=== PATIENT | male | born 1970 | race Caucasian/White ===

== ENCOUNTER → 2018-06-28 | Outpatient (CLI) | payer BC ==
--- NOTE | 2018-06-28 14:44 | XR ---
EXAMINATION TYPE: XR foot complete RT DATE OF EXAM: 06/28/2018 CLINICAL HISTORY: Right foot pain with bruising fourth and fifth toes after kicking injury TECHNIQUE: Frontal, lateral, and oblique images of the right foot are obtained. COMPARISON: None FINDINGS: There is no acute fracture/dislocation evident in the right foot. There is varus positioni ng distal fifth toe. Mild flexion in second through fifth toes is noted. There is small to moderate s ize inferior calcaneal spur. Mild diffuse subcutaneous edema is present. IMPRESSION: There is no acute fracture or dislocation in the right foot.
== END | disposition home or self-care (01) ==
LOC: RADXRMAIN 14:22
PROVIDERS: ATTEND Family Medicine
DX: M79.671 Pain in right foot (principal)

== ENCOUNTER → 2021-08-19 | Outpatient (CLI) | payer BC, OTHER ==
--- NOTE | 2021-08-19 19:47 | CT ---
EXAMINATION TYPE: CT abdomen pelvis w con DATE OF EXAM: 08/19/2021 COMPARISON: None HISTORY: Cutaneous abscess of abdominal wall. Hx prosate ca. CT DLP: 3054.10 mGycm Automated exposure control for dose reduction was used. TECHNIQUE: Helical acquisition of images from the lung bases through the pelvis have been completed. CONTRAST: Performed with Oral Contrast and with IV Contrast, patient injected with 100 mL of Isovue 300. FINDINGS: LUNG BASES: No significant abnormality is appreciated. AORTA: No significant abnormality is appreciated. LIVER/GB: The liver is enlarged and shows low-attenuation consistent with hepatic steatosis, gallblad justice unremarkable. PANCREAS: No significant abnormality is seen. SPLEEN: Subtle low dense focus is noted towards the diaphragm measuring 13 mm, is indeterminate. ADRENALS: Right adrenal gland shows an associated low dense focus measuring approximately 4.5 cm, pos sible adenoma KIDNEYS: No significant abnormality is seen. REPRODUCTIVE ORGANS: No significant abnormality is seen BOWEL: No significant abnormality is seen. No evident appendicitis. FREE AIR: No Free Air visible. ASCITES: None visible. PELVIC ADENOPATHY: None visualized. RETROPERITONEAL ADENOPATHY: No Retroperitoneal Adenopathy visible. URINARY BLADDER: No significant abnormality is seen. OSSEOUS STRUCTURES: Degenerative disc changes are present in the visualized spine, there is facet ar thropathy. IMPRESSION: HEPATIC STEATOSIS, HEPATOMEGALY. RIGHT ADRENAL MASS, MRI MAY BE OF BENEFIT.
== END | disposition home or self-care (01) ==
LOC: RADCTMAIN 15:28
PROVIDERS: ATTEND Family Medicine
DX: K76.0 Fatty (change of) liver, not elsewhere classified (principal); R16.0 Hepatomegaly, not elsewhere classified
CPT/HCPCS: 74177; Q9967

== ENCOUNTER → 2022-05-08 | Outpatient (CLI) | payer BC, OTHER ==
--- NOTE | 2022-05-08 12:34 | CT ---
EXAMINATION TYPE: CT chest wo con DATE OF EXAM: 05/08/2022 COMPARISON: CT abdomen 08/19/2021 HISTORY: 51-year-old male R91.1, Pulmonary nodule TECHNIQUE: Contiguous axial scanning of the chest without IV contrast. Coronal and sagittal reconstru ctions performed. CT DLP: 1328 mGycm Automated exposure control for dose reduction was used. FINDINGS: Heart normal size without pericardial effusion. 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 Conventional arch vessel branching anatomy. Scattered nonenlarged mediastinal lymph nodes. No thoracic lymphadenopathy by CT size criteria. A vague 6 mm posterior right upper lobe pulmonary nodule, axial image 13. 3 mm pulmonary nodule right middle lobe on axial image 33 is unchanged from 08/19/2021 compatible wit h benign etiology. Some strandy scarring or atelectasis inferior lingula. No consolidation or pleural effusion. Tiny hiatal hernia. Low attenuation of the hepatic parenchyma compatible with hepatic steatosis. Bord deepak size liver at 13.8 cm. Redemonstrated right adrenal mass measuring 4.0 cm. Noncontrast attenua tion of -11.7 Hounsfield units compatible with a lipid rich adrenal adenoma. Bones: Partially visualized ACDF hardware. No osseous destructive process. IMPRESSION: 1. A VAGUE 6 MM POSTERIOR RIGHT UPPER LOBE PULMONARY NODULE. SIX-MONTH FOLLOW-UP CT TO REASSESS. 2. A TINY 3 MM RIGHT MIDDLE LOBE PULMONARY NODULE IS UNCHANGED, COMPATIBLE WITH A BENIGN ETIOLOGY. 3. 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
== END | disposition home or self-care (01) ==
LOC: RADCTMAIN 08:44
PROVIDERS: ATTEND Family Medicine
DX: R91.1 Solitary pulmonary nodule (principal); K44.9 Diaphragmatic hernia without obstruction or gangrene
CPT/HCPCS: 71250